=== PATIENT | male | born 1945 | race American Indian/Alaskan Native ===

== ENCOUNTER 2024-12-05 10:55 | Outpatient (CLI) | payer MEDICARE, BC ==
--- NOTE | 2024-12-05 11:57 | RADIOLOGY REPORT ---
EXAM: DI CHEST,TWO VIEWS CLINICAL HISTORY: COUGH; COUGH DUE TO BRONCHOSPASM COMPARISON: None TECHNIQUE: Frontal and lateral view of the chest was obtained FINDINGS: Lines and Tubes: None Lungs: No focal consolidation. Pleura: No effusion. No pneumothorax. Cardiomediastinal contours: Unremarkable Bones: No acute osseous abnormality. IMPRESSION: No acute cardiopulmonary disease.
== END 2024-12-05 23:59 | disposition home or self-care (01) ==
LOC: RAD 10:55
PROVIDERS: ATTEND Family Medicine
DX: R05.9 Cough, unspecified (principal); J98.01 Acute bronchospasm
CPT/HCPCS: 71046

== ENCOUNTER 2025-03-21 10:10 | Outpatient (CLI) | payer MEDICARE, BC ==
[~2025-03-21] VITALS: Ht 150.5 cm; Wt 117.9 kg
[2025-03-21 10:45] LABS: ABG BASE EXCESS 0.5 mmol/L (-2.0-3.0); ABG HCO3 24.0 mmol/L (21.0-28.0); ABG OXYGEN SATURATION 96.7 % (94.0-98.0); ABG PCO2 (T) 35.3 mmHg (35.0-48.0); ABG PH (T) 7.450 (7.350-7.450); ABG PO2 (T) 89.7 mmHg (83.0-108.0); ALLEN'S TEST POSITIVE; FCOHb 0.3 % (0.5-1.5); FHHb 3.3 % (0.0-5.0); FIO2 21.0 mmHg/%; FMetHb 0.0 % (0.0-1.5); FO2Hb 96.4 % (94.0-98.0); MODE ROOM AIR; PATIENT TEMPERATURE 37.0; TOTAL HEMOGLOBIN 14.8 G/dl (13.5-17.5)
[2025-03-21] MEDS: albuterol 2.5 MG/3 ML nebule NEB ONE (11:15)
[2025-03-21 11:53] VITALS: PULSE 82; RESP 14; O2SAT 96
--- NOTE | 2025-03-21 15:04 | PROCEDURE NOTE - Respiratory ---
Procedure Note-Respiratory Providers to CC Copies To 1: SYED IBARRA MD Procedure Name: This is a complete pulmonary function study dated March 21, 2025. Hemoglobin measurement was done as part of the study. There was also a room air blood gas obtained from this patient on the same date. Spirometry measurements: Both the forced vital capacity and the FEV1 are normal. The FEV1 ratio is normal. The flow rate measurements are normal. Bronchodilator was not administered as part of the study. Lung volume measurements: The total lung capacity and the functional residual capacity are both in the upper range of normal. Lung diffusion measurement: The DLCO measurement is excellent. It is noted that the hemoglobin measurement is in the normal range. Airway resistance measurement: The airway resistance is normal. Overall conclusion: Normal pulmonary function study. We have no previous studies for comparison. An arterial blood gas was drawn from this patient while the patient was breathing ambient air. The blood pH is normal. The pCO2 is normal. The room air PO2 is normal at 89 mmHg. DON JOHNSON MD Mar 21, 2025 15:03
== END 2025-03-21 23:59 | disposition home or self-care (01) ==
LOC: RT 10:10
PROVIDERS: ATTEND Internal Medicine Critical Care Medicine
DX: J44.9 Chronic obstructive pulmonary disease, unspecified (principal); R05.3 Chronic cough
CPT/HCPCS: 36600; 82803; 85018; 94010; 94727; 94729; 94760